=== PATIENT | female | born 1980 | race Caucasian/White ===

== ENCOUNTER 2016-05-02 14:45 | Emergency (ER) | payer OTHER ==
--- NOTE | 2016-05-02 18:27 | DIAGNOSTIC IMAGING REPORT ---
PROCEDURE: CT ABD/PELVIS WITH CONTRAST CLINICAL INDICATION: Right lower quadrant pain x 1 month, initial encounter TECHNIQUE: 150 ml of Isovue 300 were injected intravenously and axial images were obtained of the entire abdomen and pelvis with sagittal and coronal reformations. COMPARISON: None. FINDINGS: ABDOMEN: Lung base are clear. Heart size is normal. Liver, gallbladder, pancreas, spleen, adrenal glands and kidneys are normal. Normal abdominal aorta. Nonspecific bowel gas pattern. PELVIS: Normal appendix. 1.6 cm left ovarian follicle. Uterus and bladder are unremarkable. No inflammatory changes or free fluid. No suspicious osseous lesions. IMPRESSION: 1. 1.6 cm left ovarian follicle 2. Results discussed with Bonnie Dotson All CT scans at this facility use dose modulation, iterative reconstruction, and/or weight-based dosing when appropriate to reduce radiation dose to as low as reasonably achievable.
--- NOTE | 2016-05-02 18:53 | ED ORDER SUMMARY ---
..... Patient: LAVELL FERNANDEZ OrderSheet [facility] VisitID: [id number] [place] [address] 35y, F Registration Date/Time: 05/02/2016 ORDER SHEET Weight: 97.9 kg (stated) Allergies: Penicillins, Tetnus GENERAL ORDERS: CT Abd/Pel w Cont (No) (pending) Urgent (16:54 05/02/2016 HBivens A.R.N.P.) (Ack 16:56 TBergley) (18:26 MCampbell) CBC w Diff Urgent (16:54 05/02/2016 HBivens A.R.N.P.) (Ack 16:56 TBergley) (17:15 Alexsandra R.N.) CMP Urgent (16:54 05/02/2016 HBivens A.R.N.P.) (Ack 16:56 TBergley) (17:15 Alexsandra R.N.) UA-Culture if indicated Urgent (16:54 05/02/2016 HBivens A.R.N.P.) (Ack 16:56 TBergley) (19:01 Alexsandra R.N.) Amylase Urgent (16:54 05/02/2016 HBivens A.R.N.P.) (Ack 16:56 TBergley) (17:16 Alexsandra R.N.) Lipase Urgent (16:54 05/02/2016 HBivens A.R.N.P.) (Ack 16:56 TBergley) (17:16 Alexsandra R.N.) Urine Urgent (16:54 05/02/2016 HBivens A.R.N.P.) (Ack 16:56 TBergley) (17:16 Alexsandra R.N.) MEDICATION ORDERS: Hydrocodone-APAP PO 5/325 mg (NOW, HIGH ALERT MEDICATION) (18:53 05/02/2016 HBivens A.R.N.P.) (Ack 19:01 Alexsandra R.N.) (19:11 Alexsandra R.N.) IV FLUIDS: Toradol IV 30 mg (NOW) (16:54 05/02/2016 HBivens A.R.N.P.) (Ack 17:15 Alexsandra R.N.) (17:20 Alexsandra R.N.) IV Saline Lock (16:54 05/02/2016 HBivens A.R.N.P.) (17:12 Alexsandra R.N.) ORDER SHEET NOTES: [Electronically signed by Tiera Sparks R.N. (19:19 05/02/2016)] [Electronically signed by Bonnie DotsonRDannyN.PDanny (19:38 05/02/2016)] [Electronically locked/signed by Tiera Sparks R.N. (19:19 05/02/2016)]
--- NOTE | 2016-05-02 18:53 | ED CLINICAL REPORT ---
Clinical Report - Physicians/Mid Levels [facility] [address] [place] [address] 05/02/2016 14:46 [id number] Time Seen: 16:38; initial patient contact, initial documentation, patient care assumed. Arrived- By private vehicle. Historian- patient. HISTORY OF PRESENT ILLNESS Chief Complaint: ABDOMINAL PAIN. At its maximum, severity described as severe. When seen in the E.D., severity described as severe. Modifying factors. Not worsened by anything. Not relieved by anything. This started today and is still present. It was abrupt in onset and has been constant. It is described as "pain", sharp and stabbing and it is described as located in the right abdomen and right lower quadrant. No nausea, loss of appetite or vomiting. She has had diarrhea. No recent travel. Similar symptoms previously: None. Recent medical care: The patient was seen recently in a clinic. ( went to clinic [employer], for abd pain, had us done, was told to come here). REVIEW OF SYSTEMS Last normal menstrual period- end of mar. No constipation, black stools, difficulty with urination, urinary frequency or bloody stools. No fever, chest pain or difficulty breathing. Denies current . All systems otherwise negative, except as recorded above. PAST HISTORY See nurses notes. PROBLEMS: Bronchitis. Cancer. Asthma. --15:31 Fe Molina R.N. ADDITIONAL SURGERIES: . Dilatation & Curettage. Surgery on Cervix . --15:31 Fe Molina R.N. SOCIAL HISTORY Never smoker. No alcohol use or drug use. No recent travel. Is a local resident. FAMILY HISTORY Negative. ADDITIONAL NOTES The nursing notes have been reviewed with agreement regarding the chief complaint, HPI, ROS, PMH and patient medications and allergies. PHYSICAL EXAM Vital Signs: 05/02/2016 15:29 BP: 153/101. HR: 95. RR: 18. O2 saturation: 100%. Temp: 98.2 F. Have been reviewed as abnormal and appear to be correct. Hypertensive. Heart rate normal. Respiratory rate normal. Temperature normal. Oxygen saturation normal. Appearance: Alert. Oriented X3. No acute distress. Eyes: Pupils equal, round and reactive to light. Eyes normal inspection. Neck: Normal inspection. Neck supple. CVS: Normal heart rate and rhythm. Heart sounds normal. Pulses normal. Respiratory: No respiratory distress. Breath sounds normal. Chest nontender. Abdomen: Soft. Mild tenderness in the right side of the abdomen and right lower quadrant. No guarding, rebound tenderness or Sainz's, obturator or psoas sign present. Bowel sounds normal. No organomegaly. No mass. Mildly obese. Tenderness present. Back: Normal inspection. Skin: Skin warm and dry. Normal skin color. No rash. Normal skin turgor. Extremities: Extremities exhibit normal ROM. No lower extremity edema. Neuro: Oriented X 3. No motor deficit. No sensory deficit. LABS, X-RAYS, AND EKG Abdominal CT: No acute disease. The study was interpreted by the radiologist and discussed with the radiologist. Interpretation time: 18:27. Laboratory Tests: UA-Culture if indicated: (MARQUIS: 05/02/2016 19:00) ( [facility] Final results Test Result Flag Units (Reference) URINE COLOR YELLOW URINE APPEARANCE CLEAR URINE GLUCOSE NEGATIVE (NEGATIVE) URINE BILIRUBIN NEGATIVE (NEGATIVE) URINE KETONE NEGATIVE (NEGATIVE) URINE SPECIFIC GRAVITY >= 1.030 (1.010-1.030) URINE PH 5.5 (5.0-8.0) URINE PROTEIN NEGATIVE (NEGATIVE) URINE UROBILINOGEN 0.2 EU/dL (0.2-1.0) URINE NITRITE NEGATIVE (NEGATIVE) URINE BLOOD NEGATIVE (NEGATIVE) URINE LEUK ESTERASE NEGATIVE (NEGATIVE) URINE RBC NONE SEEN rbc/hpf (0-1) URINE WBC 1-3 wbc/hpf (0-1) URINE EPITHELIAL CELLS 5-10 EPI/hpf (0-5) URINE BACTERIA FEW (1+) (NONE SEEN) URINE COMMENT CULT NOT INDICATED 2+ MUCUS1+ AMORPHOUSURINE CULTURES ARE SET-UP BASED ON THE FOLLOWING CRITERIA:POSITIVE NITRITEPOSITIVE LEUKOCYTE ESTERASEGREATER THAN 10 WHITE BLOOD CELLSMODERATE (2+) OR GREATER BACTERIA Urine: (MARQUIS: 05/02/2016 19:00) ( Mscvd 05/02/2016 19:24) Final results Test Result Flag Units (Reference) URINE NEGATIVE CBC w Diff: (MARQUIS: 05/02/2016 16:30) ( MsgRcvd 05/02/2016 17:09) Final results Test Result Flag Units (Reference) WHITE BLOOD COUNT 7.3 K/uL (4.5-11.5) RED BLOOD COUNT 5.40 H M/uL (4.00-5.20) HEMOGLOBIN 15.3 gm/dL (12.0-16.0) HEMATOCRIT 45.8 % (36.0-46.0) MEAN CELL VOLUME 85 fL (80-100) MEAN CORPUSCULAR HGB 28 pg (26-34) MEAN CORPUSCULAR HGB CONC 34 g/dL (31-37) RED CELL DISTRIBUTION WIDTH 13.2 % (11.6-14.8) PLATELET COUNT 265 K/uL (150-400) NEUTROPHIL % 69.8 % (50-75) LYMPH % 22.0 L % (25-40) MONO % 5.2 % (3-14) EOSINOPHIL % 2.7 % (0-4) BASOPHIL % 0.3 % (0-2) CMP: (MARQUIS: 05/02/2016 16:30) ( MsgRcvd 05/02/2016 17:38) Final results Test Result Flag Units (Reference) GLUCOSE 88 mg/dL (70-110) BUN 10 mg/dL (7-18) CREATININE 0.8 mg/dL (0.6-1.3) Estimated GFR >60 mL/min Estimated GFR- >60 mL/min Note: Persistent reduction over 3 months in eGFR<60 mL/min/1.73 m2 defines CKD. Patients with eGFR values>=60 mL/min/1.73 m2 may also have CKD if evidence ofpersistent proteinuria. Additional information may be foundat www.kidney.org. SODIUM 142 mmol/L (136-145) POTASSIUM 4.3 mmol/L (3.5-5.1) CHLORIDE 106 mmol/L (98-107) CARBON DIOXIDE 26 mmol/L (21-32) CALCIUM 9.2 mg/dL (8.5-10.1) TOTAL PROTEIN 7.8 g/dL (6.4-8.2) ALBUMIN 4.0 g/dL (3.3-5.0) BILIRUBIN, TOTAL 0.7 mg/dL (0.0-1.0) ALKALINE PHOSPHATASE 90 U/L (46-116) AST (SGOT) 16 U/L (15-37) ALT (SGPT) 23 U/L (12-78) LIPASE 93 U/L (73-393) AMYLASE 39 U/L (25-115) . PROGRESS AND PROCEDURES Course of Care: 16:59 05/02/16. pt has brief elsa fuchs alarming, see report for full details. 05/02/2016 16:28 BP: 117/73. HR: 87. RR: 18. O2 saturation: 96%. Pain level now: 8/10. Vital Signs: have been reviewed as normal and appear to be correct. Patient counseled in person regarding the patient's stable condition, test results and diagnosis. 1835. Differential Diagnosis: I considered gastritis, peptic ulcer disease, gastroesophageal reflux disease, acute appendicitis, diverticulitis, colon cancer, ulcerative colitis, Crohn's disease, biliary colic, cholecystitis, cholelithiasis, hepatitis, pancreatitis, urinary tract infection, cystitis, ureterolithiasis, ovarian cyst, ovarian torsion, , ectopic , pelvic inflammatory disease, pelvic abscess, endometriosis and viral syndrome as a possible cause of abdominal pain in this patient. This is a partial list of diagnoses considered. Above considerations are based on history, physical exam, laboratory data and other information. Differential diagnosis was discussed with patient. Disposition: Discharged home in good and improved condition (18:53). Condition: good and stable. CLINICAL IMPRESSION Acute right lower quadrant abdominal pain of undetermined cause. INSTRUCTIONS Warnings: GENERAL WARNINGS: Return or contact your physician immediately if your condition worsens or changes unexpectedly, if not improving as expected, or if other problems arise. SPECIFICALLY, return if you develop pain in the abdomen or pelvis, fever, vomiting, the inability to keep fluids down, blood in vomitus, blood in diarrhea, fainting or lightheadedness. Prescription Medications: Zofran 4 mg: Take 1 orally every six hours as needed for nausea/vomiting. Dispense ten (10). No refills. Substitution is permissible. Ultram 50 mg tablets: take 1-2 orally every 6 hours as needed for pain. Dispense twenty (20). No refills. Substitution is permissible. Follow-up: Follow up with your doctor in about two days even if well. Call for an appointment. Summary of care provided to patient. Understanding of the discharge instructions verbalized by patient. (Electronically signed by Bonnie Dotson A.R.N.P. 05/02/2016 19:38)
--- NOTE | 2016-05-02 18:53 | ED NURSING NOTES ---
Clinical Report - Nurses [facility] [address] [place] [address] 05/02/2016 14:46 Patient: LAVELL FERNANDEZ TRIAGE Triage time 15:29 May 02 2016. Acuity: LEVEL 3. Chief Complaint: ABDOMINAL PAIN. Alert. No acute distress. --15:32 Fe Molina R.N. 15:29 05/02/16. BP: 153/101. HR: 95. RR: 18. O2 saturation: 100%. Temp: 98.2 F. Pain level now 10/31. --15:32 Fe Molina R.N. Weight: 97.9 kg stated. Height/Length: 65 inches Per Patient. BMI: 36. --15:27 Fe Molina R.N. Medications Med for reflux. --15:31 Fe Molina R.N. Allergies Penicillins. Tetnus . --15:31 Fe Molina R.N. Medication/allergy information source: the patient. --15:32 Fe Molina R.N. History Arrived by private vehicle. Historian: patient. Primary physician (Dr. Isidro). ( Went to [facility] for Abdominal pain, had an US, r/o Appy. Unsure of Dx or problem, referred here for further workup.). This started today. She has had diarrhea. 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 PAST MEDICAL HX: Last normal menstrual period- end of March. No contraception. Has not received seasonal influenza immunization. SOCIAL HX: Never smoker. No alcohol use or drug use. No recent travel. No infectious disease exposure. No known contact with a sick individual. FALL RISK ASSESSMENT: Fall risk assessment completed. No fall risk identified. NUTRITIONAL RISK ASSESSMENT: The nutritional risk assessment revealed no deficiencies. FUNCTIONAL ASSESSMENT: Functional assessment: no impairments noted. LEARNING NEEDS ASSESSMENT: The learning needs assessment revealed no barriers. SKIN INTEGRITY ASSESSMENT: Skin integrity risk assessment completed. No skin integrity risk identified. --15:32 Fe Molina R.N. PROBLEMS: Bronchitis. Cancer. Asthma. --15:31 Fe Molina R.N. ADDITIONAL SURGERIES: . Dilatation & Curettage. Surgery on Cervix . --15:31 Fe Molina R.N. Interventions ID band on patient. --15:32 Fe Molina R.N. PHYSICAL ASSESSMENT 16:17 05/02/16. Ambulatory to room. Patient gowned. GENERAL / NEURO / PSYCH: Alert. Oriented X 4. Appears in no acute distress. RESPIRATORY: Respirations not labored. SKIN: Skin is warm and dry. --16:17 Tiera Sparks R.N. NURSING PROGRESS NOTES 16:17 05/02/16. Pulse oximeter and NIBP monitor placed on patient. Patient gowned. Head of bed elevated. Call light placed in reach. Side rails up x 1. Bed placed in lowest position. Brakes of bed on. --16:17 Tiera Sparks R.N. 16:28 05/02/16. BP: 117/73. HR: 87. RR: 18. O2 saturation: 96% on room air. Pain level now: 10/31. --16:29 Tiera Sparks R.N. 16:29 05/02/16. Reassessment after procedure. She is calm. Overall patient status is the same- she states feels the same. SKIN: Skin is warm and dry. --16:29 Tiera Sparks R.N. 16:30 05/02/2016 Site #1 started via IV in the right hand with an 20g angiocath, with aseptic technique and good blood return; one attempt. Blood drawn: rainbow set. Labeled in the presence of the patient and sent to the lab. Saline lock flushed with 10 mL saline. --16:30 Tiera Sparks R.N. 17:20 05/02/2016 Toradol IVP 30 mg given over 2 minute(s) via site #1. Allergies verified and confirmed 5 rights. IV patency established. IV site checked: no pain, redness, or swelling. IV flushed thoroughly pre- and post-medication administration. IVP given by RN. --17:20 Tiera Sparks R.N. 17:21. Reassessment after procedure. She is calm and resting quietly. Overall patient status is the same- she states feels the same. --17:22 Tiera Sparks R.N. 19:10 05/02/2016 Site #1 removed upon discharge. Catheter intact. Bandaid applied. --19:14 Tiera Sparks R.N. 19:11 05/02/2016 Hydrocodone-APAP (Hydrocodone-Acetaminophen) PO 5/325 mg Tablets 1 tab given. Allergies verified, confirmed 5 rights and sedative warning given to the patient. --19:11 Tiera Sparks R.N. 18:30. :patient confirmed. Clean catch urine collected; sample sent to lab. Specimen labeled in the presence of the patient. The patient is resting quietly. Overall patient status is the same- she states feels the same. --19:15 Tiera Sparks R.N. 19:10. Reassessment after procedure and medication administered. She is calm and resting quietly. Overall patient status is the same- she states feels the same (had no emesis while in the ED). SKIN: Skin is warm and dry. --19:16 Tiera Sparks R.N. 17:30 05/02/16. BP: 126/81. HR: 88. RR: 16. O2 saturation: 97% on room air. --19:18 Tiera Sparks R.N. 18:30 05/02/16. BP: 122/81. HR: 82. RR: 16. O2 saturation: 96% on room air. --19:19 Tiera Sparks R.N. DISPOSITION / DISCHARGE Departure time: 1909. Condition at departure: stable. No learning barriers present. Discharge instructions provided and reviewed with the patient. Reviewed medication(s). Prescription(s) given to the patient. Patient verbalized understanding. Written instructions provided in Montenegrin. The patient was discharged home. She left the Emergency Department ambulatory and via private vehicle. FALL RISK ASSESSMENT: Fall risk assessment completed. No fall risk identified. --19:14 Tiera Sparks R.N. 19:13 05/02/16. BP: 113/66. HR: 74. RR: 16. O2 saturation: 99% on room air. Temp: 98.4 F. Pain level now: 08/31. --19:14 Tiera Sparks R.N. Locked/Released at 05/02/2016 19:19 by Tiera Sparks R.N.
--- NOTE | 2016-05-02 18:53 | ED ORDER SUMMARY ---
..... Patient: LAVELL FERNANDEZ OrderSheet [facility] VisitID: [id number] [place] [address] 35y, F Registration Date/Time: 05/02/2016 ORDER SHEET Weight: 97.9 kg (stated) Allergies: Penicillins, Tetnus GENERAL ORDERS: CT Abd/Pel w Cont (No) (pending) Urgent (16:54 05/02/2016 HBivens A.R.N.P.) (Ack 16:56 TBergley) (18:26 MCampbell) CBC w Diff Urgent (16:54 05/02/2016 HBivens A.R.N.P.) (Ack 16:56 TBergley) (17:15 Alexsandra R.N.) CMP Urgent (16:54 05/02/2016 HBivens A.R.N.P.) (Ack 16:56 TBergley) (17:15 Alexsandra R.N.) UA-Culture if indicated Urgent (16:54 05/02/2016 HBivens A.R.N.P.) (Ack 16:56 TBergley) (19:01 Alexsandra R.N.) Amylase Urgent (16:54 05/02/2016 HBivens A.R.N.P.) (Ack 16:56 TBergley) (17:16 Alexsandra R.N.) Lipase Urgent (16:54 05/02/2016 HBivens A.R.N.P.) (Ack 16:56 TBergley) (17:16 Alexsandra R.N.) Urine Urgent (16:54 05/02/2016 HBivens A.R.N.P.) (Ack 16:56 TBergley) (17:16 Alexsandra R.N.) MEDICATION ORDERS: Hydrocodone-APAP PO 5/325 mg (NOW, HIGH ALERT MEDICATION) (18:53 05/02/2016 HBivens A.R.N.P.) (Ack 19:01 Alexsandra R.N.) (19:11 Alexsandra R.N.) IV FLUIDS: Toradol IV 30 mg (NOW) (16:54 05/02/2016 HBivens A.R.N.P.) (Ack 17:15 Alexsandra R.N.) (17:20 Alexsandra R.N.) IV Saline Lock (16:54 05/02/2016 HBivens A.R.N.P.) (17:12 Alexsandra R.N.) ORDER SHEET NOTES: [Electronically signed by Tiera Sparks R.N. (19:19 05/02/2016)] [Electronically signed by Bonnie DotsonRDannyN.PDanny (19:38 05/02/2016)] [Electronically locked/signed by Tiera Sparks R.N. (19:19 05/02/2016)]
--- NOTE | 2016-05-02 18:53 | ED NURSING NOTES ---
Clinical Report - Nurses [facility] [address] [place] [address] 05/02/2016 14:46 Patient: LAVELL FERNANDEZ TRIAGE Triage time 15:29 May 02 2016. Acuity: LEVEL 3. Chief Complaint: ABDOMINAL PAIN. Alert. No acute distress. --15:32 Fe Molina R.N. 15:29 05/02/16. BP: 153/101. HR: 95. RR: 18. O2 saturation: 100%. Temp: 98.2 F. Pain level now 10/31. --15:32 Fe Molina R.N. Weight: 97.9 kg stated. Height/Length: 65 inches Per Patient. BMI: 36. --15:27 Fe Molina R.N. Medications Med for reflux. --15:31 Fe Molina R.N. Allergies Penicillins. Tetnus . --15:31 Fe Molina R.N. Medication/allergy information source: the patient. --15:32 Fe Molina R.N. History Arrived by private vehicle. Historian: patient. Primary physician (Dr. Isidro). ( Went to [facility] for Abdominal pain, had an US, r/o Appy. Unsure of Dx or problem, referred here for further workup.). This started today. She has had diarrhea. 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 PAST MEDICAL HX: Last normal menstrual period- end of March. No contraception. Has not received seasonal influenza immunization. SOCIAL HX: Never smoker. No alcohol use or drug use. No recent travel. No infectious disease exposure. No known contact with a sick individual. FALL RISK ASSESSMENT: Fall risk assessment completed. No fall risk identified. NUTRITIONAL RISK ASSESSMENT: The nutritional risk assessment revealed no deficiencies. FUNCTIONAL ASSESSMENT: Functional assessment: no impairments noted. LEARNING NEEDS ASSESSMENT: The learning needs assessment revealed no barriers. SKIN INTEGRITY ASSESSMENT: Skin integrity risk assessment completed. No skin integrity risk identified. --15:32 Fe Moilna R.N. PROBLEMS: Bronchitis. Cancer. Asthma. --15:31 Fe Molina R.N. ADDITIONAL SURGERIES: . Dilatation & Curettage. Surgery on Cervix . --15:31 Fe Molina R.N. Interventions ID band on patient. --15:32 Fe Molina R.N. PHYSICAL ASSESSMENT 16:17 05/02/16. Ambulatory to room. Patient gowned. GENERAL / NEURO / PSYCH: Alert. Oriented X 4. Appears in no acute distress. RESPIRATORY: Respirations not labored. SKIN: Skin is warm and dry. --16:17 Tiera Sparks R.N. NURSING PROGRESS NOTES 16:17 05/02/16. Pulse oximeter and NIBP monitor placed on patient. Patient gowned. Head of bed elevated. Call light placed in reach. Side rails up x 1. Bed placed in lowest position. Brakes of bed on. --16:17 Tiera Sparks R.N. 16:28 05/02/16. BP: 117/73. HR: 87. RR: 18. O2 saturation: 96% on room air. Pain level now: 10/31. --16:29 Tiera Sparks R.N. 16:29 05/02/16. Reassessment after procedure. She is calm. Overall patient status is the same- she states feels the same. SKIN: Skin is warm and dry. --16:29 Tiera Sparks R.N. 16:30 05/02/2016 Site #1 started via IV in the right hand with an 20g angiocath, with aseptic technique and good blood return; one attempt. Blood drawn: rainbow set. Labeled in the presence of the patient and sent to the lab. Saline lock flushed with 10 mL saline. --16:30 Tiera Sparks R.N. 17:20 05/02/2016 Toradol IVP 30 mg given over 2 minute(s) via site #1. Allergies verified and confirmed 5 rights. IV patency established. IV site checked: no pain, redness, or swelling. IV flushed thoroughly pre- and post-medication administration. IVP given by RN. --17:20 Tiera Sparks R.N. 17:21. Reassessment after procedure. She is calm and resting quietly. Overall patient status is the same- she states feels the same. --17:22 Tiera Sparks R.N. 19:10 05/02/2016 Site #1 removed upon discharge. Catheter intact. Bandaid applied. --19:14 Tiera Sparks R.N. 19:11 05/02/2016 Hydrocodone-APAP (Hydrocodone-Acetaminophen) PO 5/325 mg Tablets 1 tab given. Allergies verified, confirmed 5 rights and sedative warning given to the patient. --19:11 Tiera Sparks R.N. 18:30. :patient confirmed. Clean catch urine collected; sample sent to lab. Specimen labeled in the presence of the patient. The patient is resting quietly. Overall patient status is the same- she states feels the same. --19:15 Tiera Sparks R.N. 19:10. Reassessment after procedure and medication administered. She is calm and resting quietly. Overall patient status is the same- she states feels the same (had no emesis while in the ED). SKIN: Skin is warm and dry. --19:16 Tiera Sparks R.N. 17:30 05/02/16. BP: 126/81. HR: 88. RR: 16. O2 saturation: 97% on room air. --19:18 Tiera Sparks R.N. 18:30 05/02/16. BP: 122/81. HR: 82. RR: 16. O2 saturation: 96% on room air. --19:19 Tiera Sparks R.N. DISPOSITION / DISCHARGE Departure time: 1909. Condition at departure: stable. No learning barriers present. Discharge instructions provided and reviewed with the patient. Reviewed medication(s). Prescription(s) given to the patient. Patient verbalized understanding. Written instructions provided in [place]rugu[place]. The patient was discharged home. She left the Emergency Department ambulatory and via private vehicle. FALL RISK ASSESSMENT: Fall risk assessment completed. No fall risk identified. --19:14 Tiera Sparks R.N. 19:13 05/02/16. BP: 113/66. HR: 74. RR: 16. O2 saturation: 99% on room air. Temp: 98.4 F. Pain level now: 08/31. --19:14 Tiera Sparks R.N. Locked/Released at 05/02/2016 19:19 by Tiera Sparks R.N.
--- NOTE | 2016-05-02 19:39 | ED DISCHARGE INSTRUCTIONS ---
Patient: LAVELL FERNANDEZ General Instructions [facility] VisitID: [id number] [place] [address] 35y, F Registration Date/Time: 05/02/2016 Acute right lower quadrant abdominal pain of undetermined cause. INSTRUCTIONS Warnings: GENERAL WARNINGS: Return or contact your physician immediately if your condition worsens or changes unexpectedly, if not improving as expected, or if other problems arise. SPECIFICALLY, return if you develop pain in the abdomen or pelvis, fever, vomiting, the inability to keep fluids down, blood in vomitus, blood in diarrhea, fainting or lightheadedness. Prescription Medications: Zofran 4 mg: Take 1 orally every six hours as needed for nausea/vomiting. Dispense ten (10). No refills. Substitution is permissible. Ultram 50 mg tablets: take 1-2 orally every 6 hours as needed for pain. Dispense twenty (20). No refills. Substitution is permissible. Follow-up: Follow up with your doctor in about two days even if well. Call for an appointment. Summary of care provided to patient. Understanding of the discharge instructions verbalized by patient. ADDITIONAL INFORMATION Abdominal Pain, Unknown Cause (Female) The exact cause of your abdominal (stomach) pain is not certain. This does not mean that this is something to worry about, or the right tests were not done. Everyone likes to know the exact cause of the problem, but sometimes with abdominal pain, there is no clear-cut cause, and this could be a good thing. The good news is that your symptoms can be treated, and you will feel better. Your condition does not seem serious now; however, sometimes the signs of a serious problem may take more time to appear. For this reason,it is important for you to watch for any new symptoms, problems,or worsening of your condition. Over the next few days, the abdominal pain may come and go, or be continuous. Other common symptoms can include nausea and vomiting. Sometimes it can be difficult to tell if you feel nauseous, you may just feel bad and not associate that feeling with nausea. Constipation, diarrhea, and a fever may go along with the pain. The pain may continue even if treated correctly over the following days. Depending on how things go, sometimes the cause can become clear and may require further or different treatment. Additional evaluations, medications, or tests may be needed. Home care Your health care provider may prescribe medications for pain, symptoms, or an infection. Follow the health care provider's instructions for taking these medications. General care Rest until your next exam. No strenuous activities. Try to find positions that ease discomfort. A small pillow placed on the abdomen may help relieve pain. Something warm on your abdomen (such as a heating pad) may help, but be careful not to burn yourself. Diet Do not force yourself to eat, especially if having cramps, vomiting, or diarrhea. Water is important so you do not get dehydrated. Soup may also be good. Sports drinks may also help, especially if they are not too acidic. Make sure you don't drink sugary drinks as this can make things worse. Take liquids in small amounts. Do not guzzle them. Caffeine sometimes makes the pain and cramping worse. Avoid dairy products if you have vomiting or diarrhea. Don't eat large amounts at a time. Wait a few minutes between bites. Eat a diet low in fiber (called a low-residue diet). Foods allowed include refined breads, white rice, fruit and vegetable juices without pulp, tender meats. These foods will pass more easily through the intestine. Avoid whole-grain foods, whole fruits and vegetables, meats, seeds and nuts, fried or fatty foods, dairy, alcohol and spicy foods until your symptoms go away. Follow-up care Follow up with your health care provider as instructed, or if your pain does not begin to improve in the next 24 hours. When to seek medical care Seek prompt medical care if any of the following occur: Pain gets worse or moves to the right lower abdomen New or worsening vomiting or diarrhea Swelling of the abdomen Unable to pass stool for more than three days Fever of 100.4F (38C) or higher, or as directed by your healthcare provider. Blood in vomit or bowel movements (dark red or black color) Jaundice (yellow color of eyes and skin) Weakness, dizziness Chest, arm, back, neck or jaw pain Unexpected vaginal bleeding or missed period Call 911 Call emergency services if any of the following occur: Trouble breathing Confusion Fainting or loss of consciousness Rapid heart rate Seizure Abdominal Pain,Possible Appendicitis [Repeat Exam, Female] Based on your visit today, the exact cause of your abdominal (stomach) pain is not certain. However, you do have some of the early signs of APPENDICITIS. Early in an appendix infection the symptoms can be similar to a simple "stomach ache" or "stomach flu". Therefore, the diagnosis can be hard to make. Since an appendix infection is a serious condition, it is important to know if this is the cause of your symptoms. WAITING for more time to pass and repeating the exam is the best way to find out whether you have appendicitis. Within the next 12-24 hours the cause of your stomach pain should become clear. It is important for you to watch for any new symptoms or worsening of your condition. (See below). Home Care: Rest until your next exam. No strenuous activities. Eat a diet low in fiber (called a low-residue diet). Foods allowed include refined breads, white rice, fruit and vegetable juices without pulp, tender meats. These foods will pass more easily through the intestine. Avoid whole-grain foods, whole fruits and vegetables, meats, seeds and nuts, fried or fatty foods, dairy, alcohol and spicy foods until your symptoms go away. In some cases, you may be asked not to eat or drink anything until you are re-examined. Return for another exam exactly as directed. Follow Up with your doctor or this facility as directed. Get Prompt Medical Attention if any of the following occur: Pain gets worse or moves to the right lower abdomen New or worsening vomiting or diarrhea Swelling of the abdomen Unable to pass stool for more than three days Fever of 100.4F (38C) or higher, or as directed by your healthcare provider Blood in vomit or bowel movements (dark red or black color) Weakness, dizziness or fainting Unexpected vaginal bleeding Ondansetron Oral disintegrating tablet What is this medicine? ONDANSETRON (on JUAN se anirudh) is used to treat nausea and vomiting caused by chemotherapy. It is also used to prevent or treat nausea and vomiting after surgery. How should I use this medicine? These tablets are made to dissolve in the mouth. Do not try to push the tablet through the foil backing. With dry hands, peel away the foil backing and gently remove the tablet. Place the tablet in the mouth and allow it to dissolve, then swallow. While you may take these tablets with water, it is not necessary to do so. Talk to your product safety test engineer regarding the use of this medicine in children. Special care may be needed. What side effects may I notice from receiving this medicine? Side effects that you should report to your doctor or health care management associate as soon as possible: allergic reactions like skin rash, itching or hives, swelling of the face, lips, or tongue breathing problems dizziness fast or irregular heartbeat feeling faint or lightheaded, falls fever and chills swelling of the hands and feet tightness in the chest Side effects that usually do not require medical attention (report to your doctor or health care management associate if they continue or are bothersome): constipation or diarrhea headache What may interact with this medicine? Do not take this medicine with any of the following medications: -apomorphine -cisapride -dofetilide -dronedarone -pimozide -thioridazine -ziprasidone This medicine may also interact with the following medications: -carbamazepine -phenytoin -rifampicin -tramadol -other medicines that prolong the QT interval (cause an abnormal heart rhythm) What if I miss a dose? If you miss a dose, take it as soon as you can. If it is almost time for your next dose, take only that dose. Do not take double or extra doses. Where should I keep my medicine? Keep out of the reach of children. Store between 2 and 30 degrees C (36 and 86 degrees F). Throw away any unused medicine after the expiration date. What should I tell my health care provider before I take this medicine? They need to know if you have any of these conditions: heart disease history of irregular heartbeat liver disease low levels of magnesium or potassium in the blood an unusual or allergic reaction to ondansetron, granisetron, other medicines, foods, dyes, or preservatives or trying to get breast-feeding What should I watch for while using this medicine? Check with your doctor or health care management associate as soon as you can if you have any sign of an allergic reaction. Tramadol Hydrochloride Oral tablet What is this medicine? TRAMADOL (TRA ma dole) is a pain reliever. It is used to treat moderate to severe pain in adults. How should I use this medicine? Take this medicine by mouth with a full glass of water. Follow the directions on the prescription label. If the medicine upsets your stomach, take it with food or milk. Do not take more medicine than you are told to take. Talk to your product safety test engineer regarding the use of this medicine in children. Special care may be needed. What side effects may I notice from receiving this medicine? Side effects that you should report to your doctor or health care management associate as soon as possible: allergic reactions like skin rash, itching or hives, swelling of the face, lips, or tongue breathing difficulties, wheezing confusion itching light headedness or fainting spells redness, blistering, peeling or loosening of the skin, including inside the mouth seizures Side effects that usually do not require medical attention (report to your doctor or health care management associate if they continue or are bothersome): constipation dizziness drowsiness headache nausea, vomiting What may interact with this medicine? Do not take this medicine with any of the following medications: MAOIs like Carbex, Eldepryl, Marplan, Nardil, and Parnate This medicine may also interact with the following medications: alcohol or medicines that contain alcohol antihistamines benzodiazepines bupropion carbamazepine or oxcarbazepine clozapine cyclobenzaprine digoxin furazolidone linezolid medicines for depression, anxiety, or psychotic disturbances medicines for migraine headache like almotriptan, eletriptan, frovatriptan, naratriptan, rizatriptan, sumatriptan, zolmitriptan medicines for pain like pentazocine, buprenorphine, butorphanol, meperidine, nalbuphine, and propoxyphene medicines for sleep muscle relaxants naltrexone phenobarbital phenothiazines like perphenazine, thioridazine, chlorpromazine, mesoridazine, fluphenazine, prochlorperazine, promazine, and trifluoperazine procarbazine warfarin What if I miss a dose? If you miss a dose, take it as soon as you can. If it is almost time for your next dose, take only that dose. Do not take double or extra doses. Where should I keep my medicine? Keep out of the reach of children. Store at room temperature between 15 and 30 degrees C (59 and 86 degrees F). Keep container tightly closed. Throw away any unused medicine after the expiration date. What should I tell my health care provider before I take this medicine? They need to know if you have any of these conditions: brain tumor depression drug abuse or addiction head injury if you frequently drink alcohol containing drinks kidney disease or trouble passing urine liver disease lung disease, asthma, or breathing problems seizures or epilepsy suicidal thoughts, plans, or attempt; a previous suicide attempt by you or a family member an unusual or allergic reaction to tramadol, codeine, other medicines, foods, dyes, or preservatives or trying to get breast-feeding What should I watch for while using this medicine? Tell your doctor or health care management associate if your pain does not go away, if it gets worse, or if you have new or a different type of pain. You may develop tolerance to the medicine. Tolerance means that you will need a higher dose of the medicine for pain relief. Tolerance is normal and is expected if you take this medicine for a long time. Do not suddenly stop taking your medicine because you may develop a severe reaction. Your body becomes used to the medicine. This does NOT mean you are addicted. Addiction is a behavior related to getting and using a drug for a non-medical reason. If you have pain, you have a medical reason to take pain medicine. Your doctor will tell you how much medicine to take. If your doctor wants you to stop the medicine, the dose will be slowly lowered over time to avoid any side effects. You may get drowsy or dizzy. Do not drive, use machinery, or do anything that needs mental alertness until you know how this medicine affects you. Do not stand or sit up quickly, especially if you are an older patient. This reduces the risk of dizzy or fainting spells. Alcohol can increase or decrease the effects of this medicine. Avoid alcoholic drinks. You may have constipation. Try to have a bowel movement at least every 2 to 3 days. If you do not have a bowel movement for 3 days, call your doctor or health care management associate. Your mouth may get dry. Chewing sugarless gum or sucking hard candy, and drinking plenty of water may help. Contact your doctor if the problem does not go away or is severe. You have been given the following additional information: Abdominal Pain, Unknown Cause, (Female) Abdominal Pain, Possible Appendicitis (Female) Ondansetron Oral disintegrating tablet Tramadol Hydrochloride Oral tablet (Electronically signed by Bonnie Dotson A.R.N.P. 05/02/2016 19:38)
--- NOTE | 2016-05-02 19:39 | ED MAR SUMMARY ---
..... Medication Administration Record [facility] [address] [place] [address] Patient: LAVELL FERNANDEZ Visit ID: [id number] 35y, F Weight: 97.9 kg Height/Length: 65 in BMI: 36 ALLERGIES: Penicillins, Tetnus Given 17:20 05/02/2016 Tiera Sparks RDavid Medication Administered: TORADOL [IVP], Dose: 30 mg IVP over 2 minute(s), Site: #1 right hand. Medication Ordered: Toradol IV 30 mg (NOW). Given 19:11 05/02/2016 Tiera Sparks, RDannyN. Medication Administered: HYDROCODONE-APAP [PO] (HYDROCODONE-ACETAMINOPHEN), Dose: 1 tab 5/325 mg Tablets PO. Medication Ordered: Hydrocodone-APAP PO 5/325 mg (NOW, HIGH ALERT MEDICATION).
--- NOTE | 2016-05-02 19:39 | ED MED RECONCILIATION SUMMARY ---
Patient: LAVELL FERNANDEZ Medication Reconciliation Report [facility] VisitID: [id number] [place] [address] 35y, F Registration Date/Time: 05/02/2016 Weight: 97.9 kg Height/Length: 65 in. BMI: 36.0 ALLERGIES: Penicillins, Tetnus The patient's Home Medications are listed below: THE FOLLOWING MEDICATIONS NEED TO BE RECONCILED: Med for reflux The source(s) of the original Home Medication information: patient The following Medications were given to the patient in the Emergency Department: Toradol [IVP] IVP 30 mg, administered: 05/02/2016 5:20:00 PM Hydrocodone-APAP [PO] PO 1 tab, administered: 05/02/2016 7:11:00 PM The following Medications were prescribed to the patient: Zofran 4 mg: Take 1 orally every six hours as needed for nausea/vomiting. Dispense ten (10). No refills. Substitution is permissible. -- Bonnie Dotson, Abi.R.N.P. Ultram 50 mg tablets: take 1-2 orally every 6 hours as needed for pain. Dispense twenty (20). No refills. Substitution is permissible. -- Bonnie Dotson A.R.N.P.
--- NOTE | 2016-05-02 19:39 | ED MED RECONCILIATION SUMMARY ---
Patient: LAVELL FERNANDEZ Medication Reconciliation Report [facility] VisitID: [id number] [place] [address] 35y, F Registration Date/Time: 05/02/2016 Weight: 97.9 kg Height/Length: 65 in. BMI: 36.0 ALLERGIES: Penicillins, Tetnus The patient's Home Medications are listed below: THE FOLLOWING MEDICATIONS NEED TO BE RECONCILED: Med for reflux The source(s) of the original Home Medication information: patient The following Medications were given to the patient in the Emergency Department: Toradol [IVP] IVP 30 mg, administered: 05/02/2016 5:20:00 PM Hydrocodone-APAP [PO] PO 1 tab, administered: 05/02/2016 7:11:00 PM The following Medications were prescribed to the patient: Zofran 4 mg: Take 1 orally every six hours as needed for nausea/vomiting. Dispense ten (10). No refills. Substitution is permissible. -- Bonnie Dotson, Abi.R.N.P. Ultram 50 mg tablets: take 1-2 orally every 6 hours as needed for pain. Dispense twenty (20). No refills. Substitution is permissible. -- Bonnie Dotson A.R.N.P.
--- NOTE | 2016-05-02 19:39 | ED MAR SUMMARY ---
..... Medication Administration Record [facility] [address] [place] [address] Patient: LAVELL FERNANDEZ Visit ID: [id number] 35y, F Weight: 97.9 kg Height/Length: 65 in BMI: 36 ALLERGIES: Penicillins, Tetnus Given 17:20 05/02/2016 Tiera Sparks RDavid Medication Administered: TORADOL [IVP], Dose: 30 mg IVP over 2 minute(s), Site: #1 right hand. Medication Ordered: Toradol IV 30 mg (NOW). Given 19:11 05/02/2016 Tiera Sparks, RDannyN. Medication Administered: HYDROCODONE-APAP [PO] (HYDROCODONE-ACETAMINOPHEN), Dose: 1 tab 5/325 mg Tablets PO. Medication Ordered: Hydrocodone-APAP PO 5/325 mg (NOW, HIGH ALERT MEDICATION).
== END 2016-05-02 19:10 | disposition home or self-care (01) ==
LOC: ED SRH 14:45
DX: R10.31 Right lower quadrant pain (principal); R19.7 Diarrhea, unspecified; Z88.0 Allergy status to penicillin; Z88.8 Allergy status to other drugs, medicaments and biological substances
CPT/HCPCS: 90004; 90100; 92235; 92530; 93070; 95059

== ENCOUNTER 2016-06-22 23:32 | Emergency (ER) | payer OTHER ==
--- NOTE | 2016-06-22 23:54 | ED NURSING NOTES ---
Clinical Report - Nurses [facility] [address] [place] [address] 06/22/2016 23:32 Patient: SANJANA FERNANDEZ TRIAGE Triage time 23:41. Acuity: LEVEL 4. Chief Complaint: LACERATION and (Sanjana has no idea how she got the initial cut on her foot but states she was using floor surfacer while cleaning the house which got in the cut and hurt very bad. She does not have diabetes.). Alert. No acute distress. SEPSIS SCREEN: Sepsis Screen: negative. Negative (no infection suspected/documented). --23:44 Charlie Moreno R.N. 23:40 06/22/16. BP: 133/88 (regular adult cuff) taken on the left arm, via an automated monitor, while sitting. HR: 79 (normal rate). RR: 16 (regular, unlabored and normal). O2 saturation: 99% on room air. Temp: 97.5 F (oral). --23:44 Charlie Moreno R.N. Weight: 86.1 kg stated. Height/Length: 64 inches Per Patient. BMI: 32.6. --23:41 Charlie Moreno R.N. Medications Pantoprazole Sodium Oral. --23:43 Charlie Moreno R.N. Seasonal allergy medicine. --23:43 Charlie Moreno R.N. Albuterol Sulfate Inhalation. --23:43 Charlie Moreno R.N. Medication/allergy information source: the patient. --23:44 Charlie Moreno R.N. Allergies Tdap. --23:43 Charlie Moreno R.N. History Arrived by private vehicle. Historian: patient. Unaccompanied. Primary physician (Dr. Trejo). Location of injuries: right foot. 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 PAST MEDICAL HX: Last tetanus: (Allergic). Last normal menstrual period- Last week. Tetanus immunization status is not up-to-date. SOCIAL HX: Never smoker. No alcohol use or drug use. She has not traveled outside the [place] The patient was not exposed to MRSA. ABUSE ASSESSMENT: Abuse assessment: The patient was asked "Do you feel safe in your home?" and "Has anyone hurt you or threatened to hurt you?". No report of abuse. SELF HARM ASSESSMENT: A self harm assessment was performed. The patient answered "no" to the question "Do you have thoughts of harming or killing yourself?" and "Have you recently had thoughts about harming or killing others?". FALL RISK ASSESSMENT: Fall risk assessment completed. No fall risk identified. NUTRITIONAL RISK ASSESSMENT: The nutritional risk assessment revealed no deficiencies. FUNCTIONAL ASSESSMENT: Functional assessment: no impairments noted. LEARNING NEEDS ASSESSMENT: The learning needs assessment revealed no barriers. SKIN INTEGRITY ASSESSMENT: Skin integrity risk assessment completed. No skin integrity risk identified. --23:44 Charlie Moreno R.N. PROBLEMS: Abdominal Pain. Bronchitis. Cancer. Asthma. --23:43 Charlie Moreno R.N. ADDITIONAL SURGERIES: . Dilatation & Curettage. Surgery on Cervix . --23:43 Charlie Moreno R.N. Assessment GENERAL / NEURO / PSYCH: Alert. Oriented X 4. Appears in no acute distress. [place] Coma Scale: 15- eyes open spontaneously (4); best verbal response- oriented x 4 (5); best motor response- obeys commands (6). Patient appears calm and cooperative. ( No active bleeding. Skin tear noted to base of L big toe.). RESPIRATORY: Respirations not labored. SKIN: Skin is warm and dry. --23:44 Charlie Moreno R.N. Interventions ID and allergy band on patient. To treatment room. --23:44 Charlie Moreno R.N. PHYSICAL ASSESSMENT Ambulatory to room. GENERAL / NEURO / PSYCH: Alert. Oriented X 4. Appears in no acute distress. RESPIRATORY: Respirations not labored. CVS: Pulses: right dorsalis pedis 2+ and left dorsalis pedis 2+. EXTREMITIES: Left foot: of the toe (Skin tear noted to base of L big toe.). SKIN: Skin is warm and dry. --00:11 DeElena, Charlie, R.N. NURSING PROGRESS NOTES The initial plan of care for this patient has been created This plan of care was discussed with the patient. Reassurance given to the patient. Two patient identifiers checked. Call light placed in reach. Side rails up x 1. Bed placed in lowest position. Brakes of bed on. --23:44 Charlie Moreno R.N. Care transferred and report given (JORY Pereyra). --23:46 Charlie Moreno R.N. Wound cleansed with sterile water and Hibiclens (Cleaned wound and dressed with 2x2 and secured with tape.). --00:07 Remigio Rosas. DISPOSITION / DISCHARGE Departure time: 00:15. Condition at departure: stable. The goals identified in the patient's plan of care were met. No learning barriers present. Discharge instructions provided and reviewed with the patient. Patient verbalized understanding. Written instructions provided in Wolof. ( Sanjana verbalizes understanding of all d/c instructions including need for f/u with PCP. She has no questions and voices no concerns at this time.). The patient was discharged by the nurse practitioner. She was discharged home and unaccompanied at time of discharge. She left the Emergency Department ambulatory and via private vehicle. Patient driving. JUSTIN COMA SCORE: [place] Coma Scale: 15- eyes open spontaneously (4); best verbal response- oriented x 4 (5); best motor response- obeys commands (6). --00:15 Charlie Moreno R.N. 00:14 06/23/16. BP: deferred. HR: deferred. RR: deferred. O2 saturation: deferred. Temp: deferred. Pain level now deferred. --00:15 Charlie Moreno R.N. Locked/Released at 06/23/2016 0:16 by Charlie Moreno R.N.
--- NOTE | 2016-06-22 23:54 | ED NURSING NOTES ---
Clinical Report - Nurses [facility] [address] [place] [address] 06/22/2016 23:32 Patient: SANJANA FERNANDEZ TRIAGE Triage time 23:41. Acuity: LEVEL 4. Chief Complaint: LACERATION and (Sanjana has no idea how she got the initial cut on her foot but states she was using floor scraper while cleaning the house which got in the cut and hurt very bad. She does not have diabetes.). Alert. No acute distress. SEPSIS SCREEN: Sepsis Screen: negative. Negative (no infection suspected/documented). --23:44 Charlie Moreno R.N. 23:40 06/22/16. BP: 133/88 (regular adult cuff) taken on the left arm, via an automated monitor, while sitting. HR: 79 (normal rate). RR: 16 (regular, unlabored and normal). O2 saturation: 99% on room air. Temp: 97.5 F (oral). --23:44 Charlie Moreno R.N. Weight: 86.1 kg stated. Height/Length: 64 inches Per Patient. BMI: 32.6. --23:41 Charlie Moreno R.N. Medications Pantoprazole Sodium Oral. --23:43 Charlie Moreno R.N. Seasonal allergy medicine. --23:43 Charlie Moreno R.N. Albuterol Sulfate Inhalation. --23:43 Charlie Moreno R.N. Medication/allergy information source: the patient. --23:44 Charlie Moreno R.N. Allergies Tdap. --23:43 Charlie Moreno R.N. History Arrived by private vehicle. Historian: patient. Unaccompanied. Primary physician (Dr. Trejo). Location of injuries: right foot. 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 PAST MEDICAL HX: Last tetanus: (Allergic). Last normal menstrual period- Last week. Tetanus immunization status is not up-to-date. SOCIAL HX: Never smoker. No alcohol use or drug use. She has not traveled outside the [place] The patient was not exposed to MRSA. ABUSE ASSESSMENT: Abuse assessment: The patient was asked "Do you feel safe in your home?" and "Has anyone hurt you or threatened to hurt you?". No report of abuse. SELF HARM ASSESSMENT: A self harm assessment was performed. The patient answered "no" to the question "Do you have thoughts of harming or killing yourself?" and "Have you recently had thoughts about harming or killing others?". FALL RISK ASSESSMENT: Fall risk assessment completed. No fall risk identified. NUTRITIONAL RISK ASSESSMENT: The nutritional risk assessment revealed no deficiencies. FUNCTIONAL ASSESSMENT: Functional assessment: no impairments noted. LEARNING NEEDS ASSESSMENT: The learning needs assessment revealed no barriers. SKIN INTEGRITY ASSESSMENT: Skin integrity risk assessment completed. No skin integrity risk identified. --23:44 Charlie Moreno R.N. PROBLEMS: Abdominal Pain. Bronchitis. Cancer. Asthma. --23:43 Charlie Moreno R.N. ADDITIONAL SURGERIES: . Dilatation & Curettage. Surgery on Cervix . --23:43 Charlie Moreno R.N. Assessment GENERAL / NEURO / PSYCH: Alert. Oriented X 4. Appears in no acute distress. [place] Coma Scale: 15- eyes open spontaneously (4); best verbal response- oriented x 4 (5); best motor response- obeys commands (6). Patient appears calm and cooperative. ( No active bleeding. Skin tear noted to base of L big toe.). RESPIRATORY: Respirations not labored. SKIN: Skin is warm and dry. --23:44 Charlie Moreno R.N. Interventions ID and allergy band on patient. To treatment room. --23:44 Charlie Moreno R.N. PHYSICAL ASSESSMENT Ambulatory to room. GENERAL / NEURO / PSYCH: Alert. Oriented X 4. Appears in no acute distress. RESPIRATORY: Respirations not labored. CVS: Pulses: right dorsalis pedis 2+ and left dorsalis pedis 2+. EXTREMITIES: Left foot: of the toe (Skin tear noted to base of L big toe.). SKIN: Skin is warm and dry. --00:11 DeElena, Charlie, R.N. NURSING PROGRESS NOTES The initial plan of care for this patient has been created This plan of care was discussed with the patient. Reassurance given to the patient. Two patient identifiers checked. Call light placed in reach. Side rails up x 1. Bed placed in lowest position. Brakes of bed on. --23:44 Charlie Moreno R.N. Care transferred and report given (JORY Pereyra). --23:46 Charlie Moreno R.N. Wound cleansed with sterile water and Hibiclens (Cleaned wound and dressed with 2x2 and secured with tape.). --00:07 Remigio Rosas. DISPOSITION / DISCHARGE Departure time: 00:15. Condition at departure: stable. The goals identified in the patient's plan of care were met. No learning barriers present. Discharge instructions provided and reviewed with the patient. Patient verbalized understanding. Written instructions provided in Macedonian. ( Sanjana verbalizes understanding of all d/c instructions including need for f/u with PCP. She has no questions and voices no concerns at this time.). The patient was discharged by the nurse practitioner. She was discharged home and unaccompanied at time of discharge. She left the Emergency Department ambulatory and via private vehicle. Patient driving. JUSTIN COMA SCORE: [place] Coma Scale: 15- eyes open spontaneously (4); best verbal response- oriented x 4 (5); best motor response- obeys commands (6). --00:15 Charlie Moreno R.N. 00:14 06/23/16. BP: deferred. HR: deferred. RR: deferred. O2 saturation: deferred. Temp: deferred. Pain level now deferred. --00:15 Charlie Moreno R.N. Locked/Released at 06/23/2016 0:16 by Charlie Moreno R.N.
--- NOTE | 2016-06-22 23:54 | ED ORDER SUMMARY ---
..... Patient: LAVELL FERNANDEZ OrderSheet [facility] VisitID: [id number] [address] [place] [address] 35y, F Registration Date/Time: 06/22/2016 ORDER SHEET Weight: 86.1 kg (stated) Allergies: Tdap GENERAL ORDERS: Dress Wounds (23:43 06/22/2016 Prateek A.R.N.P.) ([facility] 23:43 [facility]st[facility] (0:10 Mignon Vogel.N.) MEDICATION ORDERS: IV FLUIDS: ORDER SHEET NOTES: [Electronically signed by Charlie Moreno R.N. (00:16 06/23/2016)] [Electronically signed by Bonnie DotsonRDannyN.PDanny (13:06 06/25/2016)] [Electronically locked/signed by Charlie Moreno R.N. (00:16 06/23/2016)]
--- NOTE | 2016-06-22 23:54 | ED ORDER SUMMARY ---
..... 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 (00:16 06/23/2016)] [Electronically signed by Bonnie DotsonRDannyN.PDanny (13:06 06/25/2016)] [Electronically locked/signed by Charlie Moreno R.N. (00:16 06/23/2016)]
--- NOTE | 2016-06-22 23:54 | ED CLINICAL REPORT ---
Clinical Report - Physicians/Mid Levels [facility] [address] [place] [address] 06/22/2016 23:32 Patient: LAVELL FERNANDEZ Time Seen: 2347; upon arrival, initial patient contact, initial documentation, patient care assumed. Arrived- By private vehicle. Historian- patient. HISTORY OF PRESENT ILLNESS Chief Complaint: Injury to the left foot. The injury happened unknown. ( cut bottom of her foot, doesn't know how or when, states she doesn't even know she had a cut til cleaning tonight and got bleach on foot and it started burning). The patient sustained a laceration. Patient is experiencing mild pain. Patient denies injury to the head or neck. No other injury. REVIEW OF SYSTEMS The patient sustained a laceration. No swelling, tingling, weakness or numbness. She has no pain on weight bearing. All systems otherwise negative, except as recorded above. PAST HISTORY See nurses notes. PROBLEMS: Abdominal Pain. Bronchitis. Cancer. Asthma. --23:43 Charlie Moreno R.N. ADDITIONAL SURGERIES: . Dilatation & Curettage. Surgery on Cervix . --23:43 Charlie Moreno R.N. SOCIAL HISTORY Never smoker. No alcohol use or drug use. No recent travel. Is a local resident. FAMILY HISTORY No significant family medical history. ADDITIONAL NOTES The nursing notes have been reviewed with agreement regarding the chief complaint, HPI, ROS, PMH and patient medications and allergies. PHYSICAL EXAM Vital Signs: 06/22/2016 23:40 BP: 133/88. HR: 79. RR: 16. O2 saturation: 99%. Temp: 97.5 F. Have been reviewed as normal and appear to be correct. Appearance: Alert. Oriented X3. No acute distress. Head: Head atraumatic. Eyes: Pupils equal, round and reactive to light. Eyes normal inspection. Respiratory: No respiratory distress. Skin: Skin intact. Skin warm and dry. Extremities: Left great toe: superficial 1.0 cm laceration of the plantar aspect and MTP joint. Neurovascular intact distally. (healing lac vs skin crack, no s/s of infection, no active bleeding). No erythema, tenderness, swelling, abrasion or ecchymosis. No puncture wound, foreign body or deformity. No limitation in movement. No subungual hematoma or amputation. No foot injury. No ankle injury. Foot and ankle exam otherwise negative. Extremities otherwise negative. Neuro, Vascular and Tendons: Vascular status intact. Sensation intact. Motor intact. Tendon function intact. Gait: Normal gait. Neuro: Oriented X 3. No motor deficit. No sensory deficit. Note: isolated issue to toe. PROGRESS AND PROCEDURES Patient counseled in person regarding the patient's stable condition and diagnosis. Differential Diagnosis: Other possible considerations: lac, fb, wound infection, dry skin. Above considerations are based on history and physical exam. Differential diagnosis was discussed with patient. Disposition: Discharged home in good and improved condition (23:54). Condition: good and stable. CLINICAL IMPRESSION Single superficial laceration to the left foot. Delayed treatment.No infection or foreign body present. INSTRUCTIONS Protect wound and keep wound area clean. Soak in warm soapy water twice daily. Apply bacitracin twice daily. Warnings: GENERAL WARNINGS: Return or contact your physician immediately if your condition worsens or changes unexpectedly, if not improving as expected, or if other problems arise. Specifically return if problem worsens. Follow-up: Follow up with your doctor in about three days as needed and for wound check. Call for an appointment. Summary of care provided to patient. Understanding of the discharge instructions verbalized by patient. (Electronically signed by Bonnie Dotson A.R.N.P. 06/25/2016 13:06)
--- NOTE | 2016-06-25 13:10 | ED MED RECONCILIATION SUMMARY ---
Patient: LAVELL FERNANDEZ Medication Reconciliation Report [facility] VisitID: [id number] [address] [place] [address] 35y, F Registration Date/Time: 06/22/2016 Weight: 86.1 kg Height/Length: 64 in. BMI: 32.6 ALLERGIES: Tdap The patient's Home Medications are listed below: THE FOLLOWING MEDICATIONS NEED TO BE RECONCILED: Albuterol Sulfate Inhalation Pantoprazole Sodium Oral Seasonal allergy medicine The source(s) of the original Home Medication information: patient The following Medications were given to the patient in the Emergency Department: None. The following Medications were prescribed to the patient: None.
--- NOTE | 2016-06-25 13:10 | ED MAR SUMMARY ---
..... Medication Administration Record [facility] [address], [place] [id number] Patient: LAVELL FERNANDEZ Visit ID: [id number] 35y, F Weight: 86.1 kg Height/Length: 64 in BMI: 32.6 ALLERGIES: Tdap
--- NOTE | 2016-06-25 13:10 | ED MAR SUMMARY ---
..... Medication Administration Record [facility] [address] [place], [place] [id number] Patient: LAVELL FERNANDEZ Visit ID: [id number] 35y, F Weight: 86.1 kg Height/Length: 64 in BMI: 32.6 ALLERGIES: Tdap
--- NOTE | 2016-06-25 13:10 | ED DISCHARGE INSTRUCTIONS ---
Patient: LAVELL FERNANDEZ General Instructions [facility] VisitID: [id number] [place] [address] 35y, F Registration Date/Time: 06/22/2016 Single superficial laceration to the left foot. Delayed treatment.No infection or foreign body present. INSTRUCTIONS Protect wound and keep wound area clean. Soak in warm soapy water twice daily. Apply bacitracin twice daily. Warnings: GENERAL WARNINGS: Return or contact your physician immediately if your condition worsens or changes unexpectedly, if not improving as expected, or if other problems arise. Specifically return if problem worsens. Follow-up: Follow up with your doctor in about three days as needed and for wound check. Call for an appointment. Summary of care provided to patient. Understanding of the discharge instructions verbalized by patient. ADDITIONAL INFORMATION Laceration (All Closures) Alaceration is a cut through the skin. This will usually require stitches (sutures) or tayo if it is deep. Minor cuts may be treated with a surgical tape closure orskin glue. Home care The following guidelines will help you care for your laceration at home: Extremity, face, or trunk wounds Keep the wound clean and dry. If a bandage was applied and it becomes wet or dirty, replace it. Otherwise, leave it in place for the first 24 hours. If stitches or tayo were used, clean the wound daily. After removing the bandage, wash the area with soap and water. Use a wet cotton swab to loosen and remove any blood or crust that forms. The doctor may prescribe an antibiotic cream or ointment to prevent infection. Do not stop taking this medication until you have finished the prescribed course or the doctor tells you to stop. The doctor may also prescribe medications for pain. Follow the doctors instructions for taking these medications. You may remove the bandage to shower as usual after the first 24 hours, but do not soak the area in water (no swimming) until the stitches or tayo are removed. If surgical tape was used, keep the area clean and dry. If it becomes wet, blot it dry with a towel. If skin glue was used, do not scratch, rub, or pick at the adhesive film. Do not place tape directly over the film. Do not apply liquid, ointment, or creams to the wound while the film is in place. Do not clean the wound with peroxide and do not apply ointments. Avoid activities that cause heavy sweating until the film has fallen off. Protect the wound from prolonged exposure to sunlight or tanning lamps. You may shower as usual but do not soak the wound in water (no baths or swimming). The film will fall off by itself in 510 days. Scalp wounds During the first two days, you may carefully rinse your hair in the shower to remove blood, glass or dirt particles. After two days, you may shower and shampoo your hair normally. Do not soak your scalp in the tub or go swimming until the stitches or tayo have been removed. Talk with your doctor before applying any antibiotic ointment to the wound. Mouth wounds Eat soft foods to reduce pain. If the cut is inside of your mouth, clean by rinsing after each meal and at bedtime with a mixture of equal parts water and hydrogen peroxide (do not swallow!). Or, you can use a cotton swab to directly apply hydrogen peroxide onto the cut. Mouth wounds can be painful when eating. You may use an [id number] local numbing solution for pain relief. If this is not available, you may use any numbing solution for teething babies. You may apply this directly to the sores with a cotton-tip swab or with your finger. Follow-up care Follow up with your health care provider. Most skin wounds heal within ten days. Mouth and facial wounds heal within five days. However, even with proper treatment, a wound infection may sometimes occur. Therefore, you should check the wound daily for signs of infection listed below. Stitches should be removed from the face within five days; stitches and tayo should be removed from other parts of the body within 714 days. If dissolving stitches were used in the mouth, these will fall out or dissolve without the need for removal. If tape closures were used, remove them yourself if they have not fallen off after 7 days. Ifskin glue was used, the film will fall off by itself in 510 days. When to seek medical care Get prompt medical attention if any of these occur: Bleeding not controlled by direct pressure Signs of infection, including increasing pain in the wound, increasing wound redness or swelling, or pus coming from the wound Fever of 100.4F (38C) or higher, or as directed by your health care provider Stitches or tayo come apart or fall out or surgical tape falls off before 7 days Wound edges re-open You have been given the following additional information: Laceration, All (Electronically signed by Bonnie Dotson A.R.N.P. 06/25/2016 13:06)
--- NOTE | 2016-06-25 13:10 | ED MED RECONCILIATION SUMMARY ---
Patient: LAVELL FERNANDEZ Medication Reconciliation Report [facility] VisitID: [id number] [address] [place] [address] 35y, F Registration Date/Time: 06/22/2016 Weight: 86.1 kg Height/Length: 64 in. BMI: 32.6 ALLERGIES: Tdap The patient's Home Medications are listed below: THE FOLLOWING MEDICATIONS NEED TO BE RECONCILED: Albuterol Sulfate Inhalation Pantoprazole Sodium Oral Seasonal allergy medicine The source(s) of the original Home Medication information: patient The following Medications were given to the patient in the Emergency Department: None. The following Medications were prescribed to the patient: None.
== END 2016-06-23 00:15 | disposition home or self-care (01) ==
LOC: ED SRH 23:32
DX: S91.312A Laceration without foreign body, left foot, initial encounter (principal); X58.XXXA Exposure to other specified factors, initial encounter; Y93.E5 Activity, floor mopping and cleaning; Y92.009 Unspecified place in unspecified non-institutional (private) residence as the place of occurrence of the external cause